=== PATIENT | female | born 1965 | race Caucasian/White ===

== ENCOUNTER 2023-01-17 14:37 | Emergency (ER) | payer OTHER, SELFPAY ==
[2023-01-17 14:45] VITALS: BP 122/89; PULSE 72; RESP 12; TEMP 36.6; O2SAT 100
--- NOTE | 2023-01-17 15:18 | ED.WOUNDLAC ---
HPI - Wound/Laceration General Chief Complaint: Skin/Abscess/Foreign Body Stated Complaint: Right Hand Laceration Time Seen by Provider: 01/17/23 15:14 Source: patient and RN notes reviewed Mode of arrival: ambulatory Limitations: no limitations History of Present Illness HPI narrative: Patient presents today with a laceration to her right 2nd finger. She cut her finger at work when a wine glass she was polishing broke just prior to arrival. She is not up-to-date on her tetanus vaccine. Denies numbness or tingling in the finger. Describes the pain as throbbing. Related Data Home Medications Medication Instructions Recorded Confirmed albuterol sulfate 90 mcg/actuation 2 puff inhalation Q4-5H PRN sob 01/17/23 01/17/23 aerosol inhaler diclofenac sodium 75 mg 75 mg PO TID 01/17/23 01/17/23 tablet,delayed release dicyclomine 10 mg capsule 10 mg PO TID 01/17/23 01/17/23 montelukast 10 mg tablet 10 mg PO DAILY 01/17/23 01/17/23 omeprazole 40 mg capsule,delayed 40 mg PO DAILY 01/17/23 01/17/23 release Allergies Allergy/AdvReac Type Severity Reaction Status Date / Time amitriptyline Allergy Unknown Other Verified 01/17/23 15:50 ampicillin Allergy Unknown Other Verified 01/17/23 15:50 codeine Allergy Unknown Other Verified 01/17/23 15:50 cyclobenzaprine Allergy Unknown Other Verified 01/17/23 15:50 erythromycin base Allergy Unknown Other Verified 01/17/23 15:50 tetracycline Allergy Unknown Other Verified 01/17/23 15:50 theophylline Allergy Unknown Other Verified 01/17/23 15:50 tramadol Allergy Unknown Other Verified 01/17/23 15:50 Review of Systems Review of Systems: CONSTITUTIONAL: Denies body aches, fever, chills, or sweats. EYES: Denies visual changes, redness, or discharge. ENT: Denies rhinorrhea, congestion, sore throat, or otalgia. CARDIOVASCULAR: Denies chest pain, palpitations, or edema. RESPIRATORY: Denies cough or dyspnea. GASTROINTESTINAL: Denies abdominal pain, nausea, vomiting, or diarrhea. GENITOURINARY: Denies dysuria or hematuria. SKIN: + right 2nd finger laceration MUSCULOSKELETAL: Denies back pain, joint pain, or myalgia. NEUROLOGIC: Denies headache, numbness, tingling, or weakness. PSYCH: Denies depression or anxiety. [facility] Family History Family History Mother Family history of osteoporosis Hypertension Family history of alcoholism Cerebrovascular accident Family history of lung disease Father Family history of alcoholism Cerebrovascular accident Social History Social History Smoking status: Never smoker Alcohol intake: never Comments At time of signature, I have reviewed and agree with nursing past medical, surgical, social and family history unless otherwise noted. Please see nursing chart for further information. There is no relevant family history pertinent to the presenting complaint Exam Narrative: GENERAL: Well-appearing, well-nourished, and in no acute distress. HEAD: Normocephalic, atraumatic. EYES: EOMI. No redness or drainage. Conjunctivae normal. ENT: Mucous membranes pink and moist. NECK: Normal AROM. CHEST: No respiratory distress. EXTREMITIES: Normal range of motion. No edema. SKIN: Warm, dry, no rash. Capillary refill normal. Normal skin turgor. 2 cm full-thickness laceration to the radial side of the right 2nd finger, proximal phalanx. Distal sensation intact. Capillary refill normal. Full range of motion against resistance. NEURO: No focal deficits. Alert and oriented x3. Gait steady. PSYCH: Normal affect. No signs of depression or anxiety. Course Course Level of Care: Express Care Visit Vital Signs Vital signs: Vital Signs Temperature 97.8 F 01/17/23 14:45 Pulse Rate 72 01/17/23 14:45 Respiratory Rate 12 01/17/23 14:45 Blood Pressure 122/89 01/17/23 14:45 Pulse Oximetry 100 01/17/23 14:45 T
[2023-01-17] MEDS: TETANUS,DIPHTHERIA,AC PERTUSSIS ADULT (0.5 ML) BOOSTRIX IM (15:50)
== END 2023-01-17 16:04 | disposition home or self-care (01) ==
PROVIDERS: Emergency Provider Nurse Practitioner; PCP Internal Medicine Infectious Disease
DX: S61.210A Laceration without foreign body of right index finger without damage to nail, initial encounter (principal); W25.XXXA Contact with sharp glass, initial encounter; Y99.0 Civilian activity done for income or pay; Z23 Encounter for immunization; J45.909 Unspecified asthma, uncomplicated
CPT/HCPCS: 12001; 90471; 90715; 99212; G0463